=== PATIENT | male | born 1960 | race Caucasian/White ===

== ENCOUNTER → 2018-10-12 | Day surgery (SDC) | payer MEDICARE, OTHER ==
[2018-10-11 11:03] LABS: Urine WBC None Seen /hpf (0 - 3)
[2018-10-11 11:09] LABS: Basophils # (auto) 0 uL; Basophils % (auto) 0.4 % (0.0-2.0); Eosinophils # (auto) 0.2 uL; Eosinophils % (auto) 3.1 % (0.0-7.0); Hematocrit 45.5 % (41.0-53.0); Hemoglobin 15.2 g/dL (13.5-17.5); Lymphocytes # (auto) 1.9 uL; Lymphocytes % (auto) 29.8 % (10.0-50.0); Mean Corpuscular Hemoglobin 32.7 pg (28.0-32.0); Mean Corpuscular Hgb Conc. 33.4 g/dL (32.0-36.0); Mean Corpuscular Volume 97.7 fL (80.0-100.0); Monocytes % (auto) 15.6 % (0.0-12.0); Neutrophils # (auto) 3.2 uL; Neutrophils % (auto) 51.1 % (37.0-80.0); Nucleated Red Blood Cells % 0.1 %; Platelet Count (auto) 340 10^3/uL (140-450); Red Blood Cells 4.66 10^6/uL (4.5-5.90); White Blood Cell 6.2 10^3/uL (4.4-10.8)
[2018-10-11 11:14] LABS: Urine Bacteria NONE SEEN /hpf (None Seen); Urine Blood Negative /uL (Negative); Urine Mucus FEW (None Seen); Urine Specific Gravity 1.015 (1.001-1.035)
[2018-10-11 11:26] LABS: INR 1.06 (0.9-1.15); Partial Thromboplastin Time 33.7 sec (23.78-33.04); Prothrombin Time 11.3 sec (9.27-12.13)
[2018-10-11 11:31] LABS: Alanine Aminotransferase 99 U/L (16-61); Albumin 3.9 g/dL (3.4-5.0); Anion Gap 5 (5-15); Aspartate Aminotransferase 63 U/L (15-37); BUN/Creatinine Ratio 11.4; Blood Urea Nitrogen 10 mg/dL (7-18); Calcium 8.6 mg/dL (8.5-10.1); Carbon Dioxide 28 mmol/L (21-32); Chloride 103 mmol/L (98-107); GFR African American > 60 mL/min; GFR Non-African American > 60 mL/min; Glucose 119 mg/dL (74-106); Potassium 3.7 mmol/L (3.5-5.1); Sodium 136 mmol/L (136-145)
[2018-10-11 11:34] LABS: Alkaline Phosphatase 85 U/L (45-117); Bilirubin, Total 0.5 mg/dL (0.2-1.0); Total Protein 7.7 g/dL (6.4-8.2)
[~2018-10-12] VITALS: Ht 180.3 cm; Wt 77.1 kg
[~2018-10-12] MED LIST: AMLO10TA12 PO; CLINDAMYCIN 600MG IV 50 ML IV ONE; GLYCOPYRROLATE 0.2 MG/ML 1ML VIAL ONE; HYDROmorphone HCL 2 MG/ML VL IV PRN; HYDROmorphone HCL 2 MG/ML VL ONE; KETOROLAC TROMETH 60MG/2ML VIAL IM ONE; METOCLOPRAMIDE HCL 5MG/ml INJ 2ml VIAL IV ONE; MIDAZOLAM HCL 1MG/1ML-2 ML VIAL ONE; NEOSTIGMINE 1 MG/ML INJ (10mg/10ML VIAL) ONE; ROCURONIUM 10MG/ML 10ML VIAL IV ONE; SODIUM CHLORIDE LOCK 10 ML ONE; ceFAZolin 1GM/50ML 50 ML IV ONE; fentaNYL CITRATE 10 ML ONE; fentaNYL CITRATE 100 MCG/2 ML VL ONE
[2018-10-12 15:25] VITALS: BP 144/88
== END | disposition home or self-care (01) ==
LOC: SUR 08:37
PROVIDERS: ATTEND Orthopaedic Surgery
DX: S46.012A Strain of muscle(s) and tendon(s) of the rotator cuff of left shoulder, initial encounter (principal); M75.22 Bicipital tendinitis, left shoulder; S43.492A Other sprain of left shoulder joint, initial encounter; M75.42 Impingement syndrome of left shoulder; M12.512 Traumatic arthropathy, left shoulder; D16.02 Benign neoplasm of scapula and long bones of left upper limb; I10 Essential (primary) hypertension; Z79.899 Other long term (current) drug therapy; Z88.1 Allergy status to other antibiotic agents; Z87.891 Personal history of nicotine dependence; Z98.890 Other specified postprocedural states; X58.XXXA Exposure to other specified factors, initial encounter; Y93.89 Activity, other specified; Y92.89 Other specified places as the place of occurrence of the external cause; Y99.8 Other external cause status; L98.9 Disorder of the skin and subcutaneous tissue, unspecified
CPT/HCPCS: 36415; 80053; 81001; 85025; 85610; 85730; 88302; A4565; J0690; J1885; J2250; J3490